=== PATIENT | male | born 1995 | race Caucasian/White ===

== ENCOUNTER 2018-04-22 02:26 | Inpatient (IN) | payer MEDICAID ==
[2018-04-22] MEDS ORDERED: Sodium Chloride 0.9% 1,000 ML IV ONE ×2 (03:06→03:55)
[2018-04-22] MEDS ORDERED: Morphine Sulfate 4 mg/mL 1mL Syr IV STA (03:07)
--- NOTE | 2018-04-22 03:12 | ED Physician Chart ---
ED Chief Complaint/HPI - Patient Information Date Seen:: 04/22/18 Time Seen:: 03:00 Chief Complaint:: abdominal pain History of Present Illness:: Patient developed diffuse abdominal pain about 3 hours ago. He vomited many times and had diarrhea several times. Allergies:: Allergies Allergy/AdvReac Type Severity Reaction Status Date / Time No Known Allergies Allergy Verified 04/22/18 02:47 Vitals:: Vital Signs - 8 hr 04/22/18 02:35 Temp 97.0 F HR 85 RR 19 BP 135/75 O2 Sat % 97 Historian:: Patient ED Review of Systems - Review of Systems General/Constitutional: No fever, No chills, No weight loss, No weakness, No diaphoresis, No edema, No loss of appetite Skin: No skin lesions, No rash, No bruising Head: No headache, No light-headedness Eyes: No loss of vision, No pain, No diplopia ENT: No earache, No nasal drainage, No sore throat, No tinnitus Neck: No neck pain, No swelling, No thyromegaly, No stiffness, No mass noted Cardio Vascular: No chest pain, No palpitations, No PND, No orthopnea, No edema Pulmonary: No SOB, No cough, No sputum, No wheezing GI: Nausea, Vomiting, Diarrhea, Pain, No melena, No hematochezia, No constipation, No hematemesis G/U: No dysuria, No frequency, No hematuria Musculoskeletal: No bone or joint pain, No back pain, No muscle pain Endocrine: No polyuria, No polydipsia Psychiatric: No prior psych history, No depression, No anxiety, No suicidal ideation Hematopoietic: No bruising, No lymphadenopathy Allergic/Immuno: No urticaria, No angioedema Neurological: No syncope, No focal symptoms, No weakness, No paresthesia, No headache, No seizure, No dizziness, No confusion, No vertigo ED Past Medical History - Past Medical History Past Medical History: No significant medical hx Family History: None Social History: Non Smoker, Alcohol, Other (states he drinks alcohol heavily and vomits every morning) Surgical History: None Psychiatricy History: None Family Medical History - Family Member Mother History Unknown: Yes ED Physical Exam - Physical Examination General/Constitutional: Awake, Well-developed, well-nourished, Alert, No distress, GCS 15, Non-toxic appearing, Ambulatory Head: Atraumatic Eyes: Lids, conjuctiva normal, PERRL, EOMI Skin: Nl inspection, No rash, No skin lesions, No ecchymosis, Well hydrated, No lymphadenopathy ENMT: External ears, nose nl, Nasal exam nl, Lips, teeth, gums nl Neck: Nontender, Full ROM w/o pain, No JVD, No nuchal rigidity, No bruit, No mass, No stridor Respiratory: Nl effort/Exclusion, Clear to Auscultation, No Wheeze/Rhonchi/Rales Cardio Vascular: RRR, No murmur, gallop, rubs, NL S1 S2 GI: No organomegaly, No hernia, Nondistended, No mass/bruits Other GI comments:: Diffuse abdominal tenderness : No CVA tenderness Extremities: No tenderness or effusion, Full ROM, normal strength in all extremities, No edema, Normal digits & nails Neuro/Psych: Alert/oriented, DTR's symmetric, Normal sensory exam, Normal motor strength, Judgement/insight normal, Mood normal, Normal gait, No focal deficits Misc: Normal back, No paraspinal tenderness ED Labs/Radiology/EKG Results - Lab Results Results: Abnormal Lab Results 04/22/18 04/22/18 04/22/18 03:25 03:25 03:25 WBC 12.0 H RBC 5.20 Hgb 17.1 Hct 48.6 MCV 93.6 MCH 32.9 H MCHC Differential 35.1 RDW 14.2 Plt Count 321 MPV 8.2 Neutrophils % 78.5 Lymphocytes % 14.3 L Monocytes % 6.4 Eosinophils % 0.3 Basophils % 0.5 Sodium 138 Potassium 3.5 Chloride 102 Carbon Dioxide 22.8 Anion Gap 16.7 H BUN 10 Creatinine 0.8 Est GFR ( Amer) > 60.0 Est GFR (Non-Af Amer) > 60.0 BUN/Creatinine Ratio 12.5 Glucose 143 H Calcium 9.4 Magnesium 1.9 Lipase 555 H Ethyl Alcohol 123 H ED Assessment - Assessment General Assessment: At 0403 patient's pain was not improved. He will receive a second 1 L normal saline intravenously and another 2 mg of morphine intravenously after having received the initial 4 mg ED Septic Shock - . Is Septic Shock (SBP<90, OR Lactate>4 mmol\L) present?: No - <6hrs of presentation: Vital Signs: Vital Signs - 8 hr 04/22/18 02:35 Temp 97.0 F HR 85 RR 19 BP 135/75 O2 Sat % 97 ED Reassessment (Disposition) - Reassessment Reassessment:: At about 0430 Dr. Khan spoke to RN and patient be admitted to [facility] Reassessment Condition:: Unchanged - Diagnosis Diagnosis:: Acute pancreatitis; alcohol intoxication; hyperglycemia; leukocytosis - Patient Disposition Admitted to:: Med/Surg Condition at Disposition:: Improved
[2018-04-22] MEDS ORDERED: Morphine Sulfate 4 mg/mL 1mL Syr ONE (03:18)
[2018-04-22 03:36] LABS: % BASOPHILS 0.5 % (0.0-2.0); % EOSINOPHILS 0.3 % (0.0-5.0); % LYMPHOCYTES 14.3 % (20.0-50.0); % MONOCYTES 6.4 % (2.0-10.0); % NEUTROPHILS 78.5 % (40.0-80.0); BASOPHILE ABSOLUTE 0.1 Th/cumm (0-0.2); HEMATOCRIT 48.6 % (41.0-60); HEMOGLOBIN 17.1 gm/dL (12-16); LYMPHOCYTE ABSOLUTE 1.7 Th/cmm (1.5-3.0); MEAN CELL VOLUME 93.6 fl (80-99); MEAN CORPUSCULAR HEMOGLOBIN 32.9 pg (26.0-30.0); MEAN CORPUSCULAR HGB CONC 35.1 pg (28.0-36.0); MEAN PLATELET VOLUME 8.2 fl; MONOCYTE ABSOLUTE 0.8 Th/cmm (0.3-1.0); NEUTROPHILE ABSOLUTE 9.4 Th/cmm (1.8-8.0); PLATELET COUNT 321 Th/cmm (150-400); RED CELL DISTRIBUTION WIDTH 14.2 % (11.5-20.0)
[2018-04-22 03:48] LABS: ANION GAP 16.7 (7.0-16.0); BUN - UREA NITROGEN 10 mg/dL (7-25); CALCIUM SERUM 9.4 mg/dL (8.6-10.3); CARBON DIOXIDE 22.8 mEq/L (21.0-31.0); CHLORIDE 102 mEq/L (98-107); CREATININE - SERUM 0.8 mg/dL (0.7-1.3); GFR AFRICAN-AMERICAN > 60.0 ml/min (>90); GFR NON AFRICAN-AMERICAN > 60.0 ml/min; GLUCOSE 143 mg/dL (70-105); LIPASE 555 U/L (11-82); MAGNESIUM 1.9 mg/dL (1.9-2.7); POTASSIUM SERUM 3.5 mEq/L (3.5-5.1); SODIUM SERUM 138 mEq/L (136-145)
[2018-04-22] MEDS ORDERED: Morphine Sulfate 2 mg/mL 1mL Syr IVP STA (03:56)
[2018-04-22] MEDS ORDERED: Morphine Sulfate 2 mg/mL 1mL Syr ONE (03:57)
[2018-04-22] MEDS ORDERED: HYDROmorphone 1 mg/mL 1mL Syr IVP STA (04:35)
[2018-04-22] MEDS ORDERED: HYDROmorphone 1 mg/mL 1mL Syr ONE (04:38)
[2018-04-22 05:34] VITALS: BP 145/91
[2018-04-22 07:31] LABS: AMYLASE SERUM 122 U/L (29-103); LIPASE 580 U/L (11-82)
[2018-04-22] MEDS: HYDROmorphone 2 mg/mL 1mL Vial IVP PRN ×5 (08:17→23:10)
[2018-04-22] MEDS: D5-0.45NS w/20 mEq KCL 1,000 ML IV SCH (09:32)
--- NOTE | 2018-04-22 14:08 | Diagnostic Imaging Report ---
CT abdomen and pelvis without intravenous contrast Indication: Acute pancreatitis Comparison: None, Technique: Axial images were obtained from the lung bases to the bilateral proximal femurs without IV contrast. Coronal reconstructions were made. total DLP: 559, CTDI9.6 FINDINGS: Hypoventilatory atelectatic changes of the lung bases are noted. Assessment of the solid organs is limited due to lack of IV contrast. There is diffuse fatty infiltration of the liver. Hepatomegaly is also noted. No focal lesions. No focal splenic lesions. Mild free fluid is noted in including the perisplenic lesions and surrounding the pancreas and tracking down the mesentery and omentum. This may be due to underlying pancreatitis. Limited assessment of pancreas demonstrates no discrete focal lesions. No focal adrenal lesions. Inflammatory changes are seen surrounding the left adrenal gland. No hydronephrosis or nephrolithiasis. Mild free fluid is also noted tracking into the pelvis. No evidence of outflow obstruction. There is mild fatty infiltration of the colonic mucosa. No appendicitis. No free air. The osseous structures demonstrate no acute abnormalities. IMPRESSION: Inflammatory changes surrounding the pancreas extending to the regional fat planes including the mesentery and omentum with mild free fluid throughout the abdomen extending to the pelvis. Findings may be due to underlying pancreatitis. Consider short-term follow-up with CT with IV contrast if indicated. Hepatomegaly with diffuse fatty infiltration. Fatty infiltration of the colonic mucosa.
[2018-04-22] MEDS: Multivitamin Inj 10 ML, Thiamine HCL 100 MG, Magnesium Sulfate 2 GM, Folic Acid 1 MG in... IV SCH (14:48)
--- NOTE | 2018-04-22 15:54 | History & Physical ---
ADMIT DATE: 04/22/2018 CHIEF COMPLAINT: Acute abdominal pain. HISTORY OF PRESENT ILLNESS: The patient is a 23-year-old male with long history of alcohol dependency, presented to the Emergency Room with acute abdominal pain. Initial workup significant for acute pancreatitis, admitted to the hospital for evaluation and treatment. The patient denies any fever or chills. Pain at the mid abdomen associated with nausea and vomiting. No dysuria or hematuria. PAST MEDICAL HISTORY: Significant for alcohol dependence. PAST SURGICAL HISTORY: No recent surgery. ALLERGIES: None. MEDICATIONS: None. SOCIAL HISTORY: Chronic alcohol dependency. No drug. FAMILY HISTORY: Noncontributory. REVIEW OF SYSTEMS: RENAL SYSTEM: No history of chronic renal disorder. CARDIOVASCULAR SYSTEM: No coronary artery disease. ENDOCRINE SYSTEM: No diabetes or thyroid problem. GASTROINTESTINAL SYSTEM: History of gastrointestinal bleed. NEUROLOGICAL SYSTEM: No seizure disorder. MUSCULOSKELETAL SYSTEM: No muscular dystrophy. HEMATOLOGIC SYSTEM: No bleeding tendencies. RESPIRATORY SYSTEM: No asthma. GENITOURINARY: No dysuria or hematuria. PHYSICAL EXAMINATION: GENERAL: He is awake, alert, oriented. VITAL SIGNS: Temperature 98.4, heart rate is 114, and blood pressure 152/95. HEENT: Normocephalic. Pupils reactive to light and accommodation. Sclerae clear. NECK: Supple. Negative for lymphadenopathy, JVD, or bruit. CHEST: Entry of air bilaterally normal. No rhonchi or wheezing. HEART: S1, S2 normal. ABDOMEN: Soft. Tenderness at the mid upper abdomen. Rebound negative. Bowel sounds positive. EXTREMITIES: No edema. NEUROLOGIC: He is awake, alert, oriented. No focal motor or sensory deficit. Cranial nerves II through XII are intact. LABORATORY DATA: Sodium 138, potassium 3.5, BUN 10, creatinine 0.8, lipase 555, amylase 122. White blood cell 12, hemoglobin 17.1, hematocrit 48.6, and platelets 321. ASSESSMENT: 1. Acute pancreatitis. 2. Alcohol dependency. PLAN: The patient admitted to the hospital under Dr. Khan's service. Start him on IV fluid, IV Protonix. GI consultation obtained. A banana bag started to replace the IV fluid. CBC, CMP, lipase, and amylase, magnesium level in a.m. The patient is a full code. JOB# [id number]
[2018-04-23] MEDS: D5-0.45NS w/20 mEq KCL 1,000 ML IV SCH (02:11)
[2018-04-23] MEDS: HYDROmorphone 2 mg/mL 1mL Vial IVP PRN ×5 (03:49→21:31)
[2018-04-23 06:00] LABS: HEMATOCRIT 49.9 % (41.0-60); HEMOGLOBIN 17.1 gm/dL (12-16); MEAN CELL VOLUME 95.9 fl (80-99); MEAN CORPUSCULAR HEMOGLOBIN 32.9 pg (26.0-30.0); MEAN CORPUSCULAR HGB CONC 34.3 pg (28.0-36.0); MEAN PLATELET VOLUME 8.7 fl; PLATELET COUNT 220 Th/cmm (150-400); RED BLOOD COUNT 5.21 Mil/cmm (4.30-5.70); RED CELL DISTRIBUTION WIDTH 14.5 % (11.5-20.0)
[2018-04-23 06:05] LABS: WHITE BLOOD COUNT 19.9 Th/cmm (4.8-10.8)
[2018-04-23 06:21] LABS: ALB/GLOB RATIO 1.1 (1.0-1.8); ALBUMIN 3.3 gm/dL (4.2-5.5); ALKALINE PHOSPHATASE 117 U/L (34-104); AMYLASE SERUM 159 U/L (29-103); ANION GAP 12.6 (7.0-16.0); BILIRUBIN,TOTAL 2.7 mg/dL (0.3-1.0); BUN - UREA NITROGEN 9 mg/dL (7-25); CALCIUM SERUM 8.7 mg/dL (8.6-10.3); CARBON DIOXIDE 22.6 mEq/L (21.0-31.0); CHLORIDE 100 mEq/L (98-107); CREATININE - SERUM 0.8 mg/dL (0.7-1.3); GFR AFRICAN-AMERICAN > 60.0 ml/min (>90); GFR NON AFRICAN-AMERICAN > 60.0 ml/min; GLUCOSE 148 mg/dL (70-105); MAGNESIUM 1.9 mg/dL (1.9-2.7); POTASSIUM SERUM 4.2 mEq/L (3.5-5.1); SGOT 204 U/L (13-39); SGPT/ALT 89 U/L (7-52); SODIUM SERUM 131 mEq/L (136-145); TOTAL PROTEIN,SERUM 6.2 gm/dL (6.0-8.3)
[2018-04-23 06:29] LABS: BAND NEUTROPHILE 0 % (0-10); BASOPHIL 0 % (0-3); EOSINOPHIL 0 % (0-5); LYMPHOCYTE 5 % (20-50); MONOCYTE 5 % (2-10); NEUTROPHILS 95 % (40-80)
[2018-04-23 06:30] LABS: % EOSINOPHILS 0.2 % (0.0-5.0); % LYMPHOCYTES 6.3 % (20.0-50.0); % MONOCYTES 5.2 % (2.0-10.0); % NEUTROPHILS 88.3 % (40.0-80.0)
[2018-04-23 06:36] LABS: LIPASE 900 U/L (11-82)
--- NOTE | 2018-04-23 07:55 | GI Progress Note ---
Subjective - Review of Systems Service Date: 04/23/18 Subjective: EVENTS NOTED. STILL WITH EPIG PAIN. Objective - Results Result Diagrams: 04/23/18 05:48 04/23/18 05:48 Recent Labs: Laboratory Last Values WBC 19.9 Th/cmm (4.8-10.8) H 04/23/18 05:48 RBC 5.21 Mil/cmm (4.30-5.70) 04/23/18 05:48 Hgb 17.1 gm/dL (12-16) 04/23/18 05:48 Hct 49.9 % (41.0-60) 04/23/18 05:48 MCV 95.9 fl (80-99) 04/23/18 05:48 MCH 32.9 pg (26.0-30.0) H 04/23/18 05:48 MCHC Differential 34.3 pg (28.0-36.0) 04/23/18 05:48 RDW 14.5 % (11.5-20.0) 04/23/18 05:48 Plt Count 220 Th/cmm (150-400) 04/23/18 05:48 MPV 8.7 fl 04/23/18 05:48 Add Manual Diff YES 04/23/18 05:48 Neutrophils % 88.3 % (40.0-80.0) H 04/23/18 05:48 Band Neutrophils % 0 % (0-10) 04/23/18 05:48 Lymphocytes % 6.3 % (20.0-50.0) L 04/23/18 05:48 Monocytes % 5.2 % (2.0-10.0) 04/23/18 05:48 Eosinophils % 0.2 % (0.0-5.0) 04/23/18 05:48 Basophils % 0.5 % (0.0-2.0) 04/22/18 03:25 Neutrophils (Manual) 95 % (40-80) H 04/23/18 05:48 Lymphocytes 5 % (20-50) L 04/23/18 05:48 Monocytes 5 % (2-10) 04/23/18 05:48 Eosinophils 0 % (0-5) 04/23/18 05:48 Basophils 0 % (0-3) 04/23/18 05:48 Sodium 131 mEq/L (136-145) L 04/23/18 05:48 Potassium 4.2 mEq/L (3.5-5.1) 04/23/18 05:48 Chloride 100 mEq/L (98-107) 04/23/18 05:48 Carbon Dioxide 22.6 mEq/L (21.0-31.0) 04/23/18 05:48 Anion Gap 12.6 (7.0-16.0) 04/23/18 05:48 BUN 9 mg/dL (7-25) 04/23/18 05:48 Creatinine 0.8 mg/dL (0.7-1.3) 04/23/18 05:48 Est GFR ( Amer) > 60.0 ml/min (>90) 04/23/18 05:48 Est GFR (Non-Af Amer) > 60.0 ml/min 04/23/18 05:48 BUN/Creatinine Ratio 11.3 04/23/18 05:48 Glucose 148 mg/dL (70-105) H 04/23/18 05:48 Calcium 8.7 mg/dL (8.6-10.3) 04/23/18 05:48 Magnesium 1.9 mg/dL (1.9-2.7) 04/23/18 05:48 Total Bilirubin 2.7 mg/dL (0.3-1.0) H 04/23/18 05:48 AST 204 U/L (13-39) H 04/23/18 05:48 ALT 89 U/L (7-52) H 04/23/18 05:48 Alkaline Phosphatase 117 U/L (34-104) H 04/23/18 05:48 Total Protein 6.2 gm/dL (6.0-8.3) 04/23/18 05:48 Albumin 3.3 gm/dL (4.2-5.5) L 04/23/18 05:48 Globulin 2.9 gm/dL 04/23/18 05:48 Albumin/Globulin Ratio 1.1 (1.0-1.8) 04/23/18 05:48 Amylase 159 U/L (29-103) H 04/23/18 05:48 Lipase 900 U/L (11-82) H 04/23/18 05:48 Ethyl Alcohol 123 mg/dL (0-10) H 04/22/18 03:25 - Physical Exam Vitals and I&O: Vital Signs Temp 99.5 F 04/23/18 04:00 Pulse 131 04/23/18 04:00 Resp 20 04/23/18 04:00 BP 128/75 04/23/18 04:00 Pulse Ox 95 04/23/18 04:00 Intake & Output 04/22/18 04/23/18 04/23/18 18:59 06:59 18:59 Intake Total 750 500 Output Total 500 Balance 250 500 Weight (lbs) 81.647 kg 81.647 kg Intake: Intake, IV Amount 500 500 D5-0.45NS w/20 mEq KCL 1, 500 500 000 ml @ 125 mls/hr IV . Q8H [facility] Rx#:[id number] Oral 250 Output: Emesis 500 Other: # Voids 3 # Bowel Movements 0 Weight Source Bedscale Bedscale Active Medications: Current Medications Chlordiazepoxide (Librium) 25 mg PO BID [facility]; Protocol Stop: 06/21/18 16:59 Last Admin: 04/22/18 16:23 Dose: 25 mg Hydromorphone HCl (Dilaudid) 2 mg IVP Q4H PRN PRN Reason: Pain (Severe) Stop: 06/21/18 05:31 Last Admin: 04/23/18 03:49 Dose: 2 mg Potassium Chloride/Dextrose/Sod Cl (D5-0.45ns W/20 Meq Kcl) 1,000 mls @ 125 mls /hr IV .Q8H [facility] Stop: 06/21/18 07:59 Last Admin: 04/23/18 02:11 Dose: 125 mls/hr Multivitamins/Minerals 10 ml/Thiamine HCl 100 mg/ Magnesium Sulfate 2 gm/ Folic Acid 1 mg / Sodium Chloride 1,015.2 mls @ 125 mls/hr IV Q24H [facility] Stop: 06/21/18 14:59 Last Admin: 04/22/18 14:48 Dose: 125 mls/hr Lorazepam (Ativan) 2 mg IVP Q4HR PRN; Protocol PRN Reason: Seizures Stop: 06/21/18 13:23 Last Admin: 04/23/18 00:51 Dose: 2 mg Ondansetron HCl (Zofran) 4 mg IV Q4H PRN PRN Reason: Nausea / Vomiting Stop: 06/21/18 05:31 Last Admin: 04/22/18 22:40 Dose: 4 mg Pantoprazole Sodium (Protonix) 40 mg IVP DAILY [facility] Stop: 06/22/18 08:59 General: Alert HEENT: Atraumatic Neck: Supple Cardiovascular: Regular rate Lungs: Clear to auscultation Abdomen: Bowel sounds, Soft, Tender (MILD EPIG) Assessment/Plan - Assessment Assessment: IMPRESSION: 1. ACUTE ALCOHOLIC PANCREATITIS. 2. ALCOHOL DEPENDENCE. RECS: 1. IVF/PAIN CONTROL. 2. PROTONIX. 3. ZOFRAN. 4. CLEAR LIQUIDS FOR NOW. 5. CHECK TG LEVEL. 6. LIBRIUM. 7. THIAMINE. 8. ALCOHOL CESSATION STRESSED.
[2018-04-23] MEDS: Sodium Chloride 0.9% 1,000 ML IV SCH (08:53)
--- NOTE | 2018-04-23 09:58 | Consultation ---
DATE OF CONSULTATION: 04/22/2018 GASTROENTEROLOGY CONSULTATION REQUESTING PHYSICIAN: Dr. Karen Khan. REASON FOR CONSULTATION: Acute pancreatitis. HISTORY OF PRESENT ILLNESS: A 23-year-old male with alcohol dependence, admitted for the first time with epigastric abdominal pains, nausea, vomiting and acute pancreatitis. He has been drinking since age of 12. He drinks mostly beer, last drink was yesterday. He started having abdominal pain with radiation to the back along with nausea and vomiting that started yesterday. He denies GI bleeding or melena. PAST MEDICAL HISTORY: As above. MEDICATIONS: Here are Librium, Dilaudid, Ativan, banana bag, Zofran and IV fluids with potassium. ALLERGIES: No known drug allergies. SOCIAL HISTORY: No tobacco, positive alcohol. No drugs. FAMILY HISTORY: Noncontributory. REVIEW OF SYSTEMS: Negative. PHYSICAL EXAMINATION: VITAL SIGNS: Temperature of 98.1, blood pressure 141/76, pulse of 140, respirations 20, O2 sat 97% on room air. GENERAL: The patient is well-developed, well-nourished young male who is in no acute distress. HEENT: Sclerae nonicteric. Oropharynx is clear. CARDIOVASCULAR: Regular rate and rhythm. LUNGS: With occasional rhonchi at the base. ABDOMEN: Soft, nontender. Mild to moderate epigastric tenderness to palpation, mild distention. Hypoactive bowel sounds. EXTREMITIES: No edema. RECTAL: Deferred. LABORATORY DATA AND IMAGING: WBC 12, hemoglobin 17.1, platelet count 321, creatinine 0.8, lipase 580, amylase 122. Alcohol level 123. CT of the abdomen and pelvis done without contrast shows inflammatory changes surrounding the pancreas extending to the region of the fat planes and mesentery and omentum consistent with acute pancreatitis. No obvious mass lesion identified. IMPRESSION: 1. Acute pancreatitis, likely alcohol related, new onset. 2. Leukocytosis. 3. Nausea and vomiting, likely secondary to above. RECOMMENDATIONS: 1. Protonix. 2. Antiemetics. 3. IV fluids with n.p.o. status and pain control measures. 4. Monitor lipase. 5. Alcohol dependence. Straight alcohol rehabilitation strongly advised. 6. Banana bag. 7. Antianxiety medications to control pending alcohol withdrawal state. Thank you, Dr. Karen Khan for involving us in the care of your patient. If you have any further questions, please call us. JOB# [id number]
[2018-04-23] MEDS: Multivitamin Inj 10 ML, Thiamine HCL 100 MG, Magnesium Sulfate 2 GM, Folic Acid 1 MG in... IV SCH (15:33)
--- NOTE | 2018-04-23 18:46 | General Progress Note ---
Subjective - Review of Systems Service Date: 04/23/18 Subjective: awake and alert epigastric pain urine noted to be red tinged Objective - Results Result Diagrams: 04/23/18 05:48 04/23/18 05:48 Recent Labs: Laboratory Last Values WBC 19.9 Th/cmm (4.8-10.8) H 04/23/18 05:48 RBC 5.21 Mil/cmm (4.30-5.70) 04/23/18 05:48 Hgb 17.1 gm/dL (12-16) 04/23/18 05:48 Hct 49.9 % (41.0-60) 04/23/18 05:48 MCV 95.9 fl (80-99) 04/23/18 05:48 MCH 32.9 pg (26.0-30.0) H 04/23/18 05:48 MCHC Differential 34.3 pg (28.0-36.0) 04/23/18 05:48 RDW 14.5 % (11.5-20.0) 04/23/18 05:48 Plt Count 220 Th/cmm (150-400) 04/23/18 05:48 MPV 8.7 fl 04/23/18 05:48 Add Manual Diff YES 04/23/18 05:48 Neutrophils % 88.3 % (40.0-80.0) H 04/23/18 05:48 Band Neutrophils % 0 % (0-10) 04/23/18 05:48 Lymphocytes % 6.3 % (20.0-50.0) L 04/23/18 05:48 Monocytes % 5.2 % (2.0-10.0) 04/23/18 05:48 Eosinophils % 0.2 % (0.0-5.0) 04/23/18 05:48 Basophils % 0.5 % (0.0-2.0) 04/22/18 03:25 Neutrophils (Manual) 95 % (40-80) H 04/23/18 05:48 Lymphocytes 5 % (20-50) L 04/23/18 05:48 Monocytes 5 % (2-10) 04/23/18 05:48 Eosinophils 0 % (0-5) 04/23/18 05:48 Basophils 0 % (0-3) 04/23/18 05:48 Sodium 131 mEq/L (136-145) L 04/23/18 05:48 Potassium 4.2 mEq/L (3.5-5.1) 04/23/18 05:48 Chloride 100 mEq/L (98-107) 04/23/18 05:48 Carbon Dioxide 22.6 mEq/L (21.0-31.0) 04/23/18 05:48 Anion Gap 12.6 (7.0-16.0) 04/23/18 05:48 BUN 9 mg/dL (7-25) 04/23/18 05:48 Creatinine 0.8 mg/dL (0.7-1.3) 04/23/18 05:48 Est GFR ( Amer) > 60.0 ml/min (>90) 04/23/18 05:48 Est GFR (Non-Af Amer) > 60.0 ml/min 04/23/18 05:48 BUN/Creatinine Ratio 11.3 04/23/18 05:48 Glucose 148 mg/dL (70-105) H 04/23/18 05:48 Calcium 8.7 mg/dL (8.6-10.3) 04/23/18 05:48 Magnesium 1.9 mg/dL (1.9-2.7) 04/23/18 05:48 Total Bilirubin 2.7 mg/dL (0.3-1.0) H 04/23/18 05:48 AST 204 U/L (13-39) H 04/23/18 05:48 ALT 89 U/L (7-52) H 04/23/18 05:48 Alkaline Phosphatase 117 U/L (34-104) H 04/23/18 05:48 Total Protein 6.2 gm/dL (6.0-8.3) 04/23/18 05:48 Albumin 3.3 gm/dL (4.2-5.5) L 04/23/18 05:48 Globulin 2.9 gm/dL 04/23/18 05:48 Albumin/Globulin Ratio 1.1 (1.0-1.8) 04/23/18 05:48 Amylase 159 U/L (29-103) H 04/23/18 05:48 Lipase 900 U/L (11-82) H 04/23/18 05:48 Ethyl Alcohol 123 mg/dL (0-10) H 04/22/18 03:25 - Physical Exam Vitals and I&O: Vital Signs Temp 100.2 F 04/23/18 15:41 Pulse 131 04/23/18 17:09 Resp 20 04/23/18 15:41 BP 141/75 04/23/18 15:41 Pulse Ox 95 04/23/18 15:41 Intake & Output 04/22/18 04/23/18 04/23/18 18:59 06:59 18:59 Intake Total 750 1515.2 50 Output Total 500 Balance 250 1515.2 50 Weight (lbs) 81.647 kg 81.647 kg Intake: Intake, IV Amount 500 1515.2 50 D5-0.45NS w/20 mEq KCL 1, 500 500 000 ml @ 125 mls/hr IV . Q8H [facility] Rx#:[id number] Multivitamin Inj 10 ml 1015.2 Thiamine HCL 100 mg Magnesium Sulfate 2 gm Folic Acid 1 mg In Sodium Chloride 0.9% 1,000 ml @ 125 mls/hr IV Q24H [facility] Rx#:[id number] Piperacillin Sodium/ 50 Tazobact 3.375 gm In Sodium Chloride 0.9% 50 ml @ 100 mls/hr IV Q6HR [facility] Rx#:[id number] Oral 250 Output: Emesis 500 Other: # Voids 3 # Bowel Movements 0 Weight Source Bedscale Bedscale Active Medications: Current Medications Chlordiazepoxide (Librium) 25 mg PO BID [facility]; Protocol Stop: 06/21/18 16:59 Last Admin: 04/23/18 17:09 Dose: 25 mg Folic Acid (Folate) 1 mg PO DAILY [facility] Stop: 06/22/18 13:29 Hydromorphone HCl (Dilaudid) 2 mg IVP Q4H PRN PRN Reason: Pain (Severe) Stop: 06/21/18 05:31 Last Admin: 04/23/18 17:09 Dose: 2 mg Multivitamins/Minerals 10 ml/Thiamine HCl 100 mg/ Magnesium Sulfate 2 gm/ Folic Acid 1 mg / Sodium Chloride 1,015.2 mls @ 125 mls/hr IV Q24H [facility] Stop: 06/21/18 14:59 Last Admin: 04/23/18 15:33 Dose: 125 mls/hr Piperacillin Sod/Tazobactam (Sod 3.375 gm/ Sodium Chloride) 50 mls @ 100 mls/ hr IV Q6HR [facility] Stop: 06/22/18 08:29 Last Admin: 04/23/18 12:45 Dose: 100 mls/hr Sodium Chloride (Nacl 0.9%) 1,000 mls @ 150 mls/hr IV .Q6H40M [facility] Stop: 06/22/18 07:57 Last Admin: 04/23/18 08:53 Dose: 150 mls/hr Lorazepam (Ativan) 1 mg IVP Q4HR PRN; Protocol PRN Reason: Anxiety Stop: 06/22/18 13:18 Multivitamins/Vitamin C (Theragran) 1 tab PO DAILY [facility] Stop: 06/22/18 13:29 Ondansetron HCl (Zofran) 4 mg IV Q4H PRN PRN Reason: Nausea / Vomiting Stop: 06/21/18 05:31 Last Admin: 04/22/18 22:40 Dose: 4 mg Pantoprazole Sodium (Protonix) 40 mg IVP BID [facility] Stop: 06/22/18 08:59 Last Admin: 04/23/18 17:09 Dose: 40 mg Thiamine HCl (Vitamin B1) 100 mg PO DAILY [facility] Stop: 06/22/18 13:14 General: Alert HEENT: Atraumatic Neck: Supple Cardiovascular: Regular rate Lungs: Clear to auscultation Abdomen: Bowel sounds, Soft, Tender (MILD EPIG) Assessment/Plan - Assessment Assessment: acute pancreatitis etoh abuse - Plan Plan: continue IV hydration UA monitor WBC and Lipase
[2018-04-24] MEDS: HYDROmorphone 2 mg/mL 1mL Vial IVP PRN ×7 (01:11→22:08)
[2018-04-24] MEDS: Sodium Chloride 0.9% 1,000 ML IV SCH (05:18)
[2018-04-24 06:08] LABS: % EOSINOPHILS 1.2 % (0.0-5.0); % LYMPHOCYTES 9.4 % (20.0-50.0); % MONOCYTES 6.5 % (2.0-10.0); % NEUTROPHILS 82.9 % (40.0-80.0); EOSINOPHILE ABSOLUTE 0.2 Th/cmm (0.1-0.4); HEMATOCRIT 39.5 % (41.0-60); HEMOGLOBIN 13.5 gm/dL (12-16); LYMPHOCYTE ABSOLUTE 1.3 Th/cmm (1.5-3.0); MEAN CELL VOLUME 96.5 fl (80-99); MEAN CORPUSCULAR HGB CONC 34.2 pg (28.0-36.0); MEAN PLATELET VOLUME 9.2 fl; MONOCYTE ABSOLUTE 0.9 Th/cmm (0.3-1.0); NEUTROPHILE ABSOLUTE 11.6 Th/cmm (1.8-8.0); PLATELET COUNT 174 Th/cmm (150-400); RED BLOOD COUNT 4.09 Mil/cmm (4.30-5.70); RED CELL DISTRIBUTION WIDTH 13.9 % (11.5-20.0)
[2018-04-24 06:17] LABS: INR 0.99 (0.5-1.4); PROTHROMBIN TIME (TEST) 10.3 SECONDS (9.5-11.5)
[2018-04-24 06:20] LABS: URINE SOURCE MIDSTREAM
[2018-04-24 06:25] LABS: URINE BILIRUBIN NEGATIVE (NEGATIVE); URINE BLOOD TRACE (NEGATIVE); URINE GLUCOSE (UA) NEGATIVE (NEGATIVE); URINE KETONE TRACE mg/dL (NEGATIVE); URINE LEUKOCYTE ESTERASE NEGATIVE (NEGATIVE); URINE MICROSCOPIC INDICATED? YES; URINE NITRATE NEGATIVE (NEGATIVE); URINE PROTEIN 30 mg/dL (NEGATIVE); URINE UROBILINOGEN 0.2 E.U./dL (0.2 - 1.0)
[2018-04-24 06:26] LABS: ALKALINE PHOSPHATASE 76 U/L (34-104); ANION GAP 10.7 (7.0-16.0); BUN - UREA NITROGEN 9 mg/dL (7-25); CALCIUM SERUM 8.5 mg/dL (8.6-10.3); CARBON DIOXIDE 23.9 mEq/L (21.0-31.0); CHLORIDE 100 mEq/L (98-107); CREATININE - SERUM 0.9 mg/dL (0.7-1.3); GFR AFRICAN-AMERICAN > 60.0 ml/min (>90); GFR NON AFRICAN-AMERICAN > 60.0 ml/min; GLUCOSE 108 mg/dL (70-105); LIPASE 589 U/L (11-82); POTASSIUM SERUM 3.6 mEq/L (3.5-5.1); SGOT 82 U/L (13-39); SGPT/ALT 51 U/L (7-52); SODIUM SERUM 131 mEq/L (136-145); TOTAL PROTEIN,SERUM 5.9 gm/dL (6.0-8.3); TRIGLYCERIDES 104 mg/dL (<150)
[2018-04-24 06:38] LABS: URINE CLARITY TURBID (CLEAR); URINE COLOR YELLOW
[2018-04-24 06:48] LABS: URINE BACTERIA 2+ /hpf (NONE SEEN); URINE EPITHELIAL CELLS OCCASIONAL /lpf (FEW); URINE RBC 0-2 /hpf (0-5); URINE WBC 0-2 /hpf (0-5)
[2018-04-24 06:49] LABS: URINE AMORPHOUS SEDIMENT FEW URATES (NONE SEEN)
--- NOTE | 2018-04-24 07:54 | GI Progress Note ---
Subjective - Review of Systems Service Date: 04/24/18 Subjective: EVENTS NOTED. STILL WITH EPIG PAIN. FEELS BETTER. Objective - Results Result Diagrams: 04/24/18 05:55 04/24/18 05:55 Recent Labs: Laboratory Last Values WBC 14.0 Th/cmm (4.8-10.8) H 04/24/18 05:55 RBC 4.09 Mil/cmm (4.30-5.70) L 04/24/18 05:55 Hgb 13.5 gm/dL (12-16) 04/24/18 05:55 Hct 39.5 % (41.0-60) L 04/24/18 05:55 MCV 96.5 fl (80-99) 04/24/18 05:55 MCH 33.0 pg (26.0-30.0) H 04/24/18 05:55 MCHC Differential 34.2 pg (28.0-36.0) 04/24/18 05:55 RDW 13.9 % (11.5-20.0) 04/24/18 05:55 Plt Count 174 Th/cmm (150-400) 04/24/18 05:55 MPV 9.2 fl 04/24/18 05:55 Add Manual Diff YES 04/23/18 05:48 Neutrophils % 82.9 % (40.0-80.0) H 04/24/18 05:55 Band Neutrophils % 0 % (0-10) 04/23/18 05:48 Lymphocytes % 9.4 % (20.0-50.0) L 04/24/18 05:55 Monocytes % 6.5 % (2.0-10.0) 04/24/18 05:55 Eosinophils % 1.2 % (0.0-5.0) 04/24/18 05:55 Basophils % 0.0 % (0.0-2.0) 04/24/18 05:55 Neutrophils (Manual) 95 % (40-80) H 04/23/18 05:48 Lymphocytes 5 % (20-50) L 04/23/18 05:48 Monocytes 5 % (2-10) 04/23/18 05:48 Eosinophils 0 % (0-5) 04/23/18 05:48 Basophils 0 % (0-3) 04/23/18 05:48 PT 10.3 SECONDS (9.5-11.5) 04/24/18 05:55 INR 0.99 (0.5-1.4) 04/24/18 05:55 PTT (Actin FS) 31.6 SECONDS (26.0-38.0) 04/24/18 05:55 Sodium 131 mEq/L (136-145) L 04/24/18 05:55 Potassium 3.6 mEq/L (3.5-5.1) 04/24/18 05:55 Chloride 100 mEq/L (98-107) 04/24/18 05:55 Carbon Dioxide 23.9 mEq/L (21.0-31.0) 04/24/18 05:55 Anion Gap 10.7 (7.0-16.0) 04/24/18 05:55 BUN 9 mg/dL (7-25) 04/24/18 05:55 Creatinine 0.9 mg/dL (0.7-1.3) 04/24/18 05:55 Est GFR ( Amer) > 60.0 ml/min (>90) 04/24/18 05:55 Est GFR (Non-Af Amer) > 60.0 ml/min 04/24/18 05:55 BUN/Creatinine Ratio 10.0 04/24/18 05:55 Glucose 108 mg/dL (70-105) H 04/24/18 05:55 Calcium 8.5 mg/dL (8.6-10.3) L 04/24/18 05:55 Magnesium 1.9 mg/dL (1.9-2.7) 04/23/18 05:48 Total Bilirubin 2.0 mg/dL (0.3-1.0) H 04/24/18 05:55 AST 82 U/L (13-39) H 04/24/18 05:55 ALT 51 U/L (7-52) 04/24/18 05:55 Alkaline Phosphatase 76 U/L (34-104) 04/24/18 05:55 Total Protein 5.9 gm/dL (6.0-8.3) L 04/24/18 05:55 Albumin 3.0 gm/dL (4.2-5.5) L 04/24/18 05:55 Globulin 2.9 gm/dL 04/24/18 05:55 Albumin/Globulin Ratio 1.0 (1.0-1.8) 04/24/18 05:55 Triglycerides 104 mg/dL (<150) 04/24/18 05:55 Amylase 159 U/L (29-103) H 04/23/18 05:48 Lipase 589 U/L (11-82) H 04/24/18 05:55 Urine Source MIDSTREAM 04/24/18 05:15 Urine Color YELLOW 04/24/18 05:15 Urine Clarity TURBID (CLEAR) 04/24/18 05:15 Urine pH 6.0 (4.6 - 8.0) 04/24/18 05:15 Ur Specific [place] >= 1.030 (1.005-1.030) 04/24/18 05:15 Urine Protein 30 mg/dL (NEGATIVE) H 04/24/18 05:15 Urine Glucose (UA) NEGATIVE mg/dL (NEGATIVE) 04/24/18 05:15 Urine Ketones TRACE mg/dL (NEGATIVE) 04/24/18 05:15 Urine Blood TRACE (NEGATIVE) 04/24/18 05:15 Urine Nitrate NEGATIVE (NEGATIVE) 04/24/18 05:15 Urine Bilirubin NEGATIVE (NEGATIVE) 04/24/18 05:15 Urine Urobilinogen 0.2 E.U./dL (0.2 - 1.0) 04/24/18 05:15 Ur Leukocyte Esterase NEGATIVE (NEGATIVE) 04/24/18 05:15 Urine RBC 0-2 /hpf (0-5) H 04/24/18 05:15 Urine WBC 0-2 /hpf (0-5) 04/24/18 05:15 Ur Epithelial Cells OCCASIONAL /lpf (FEW) 04/24/18 05:15 Amorphous Sediment FEW URATES (NONE SEEN) 04/24/18 05:15 Urine Bacteria 2+ /hpf (NONE SEEN) H 04/24/18 05:15 Ethyl Alcohol 123 mg/dL (0-10) H 04/22/18 03:25 - Physical Exam Vitals and I&O: Vital Signs Temp 98.0 F 04/24/18 04:00 Pulse 108 04/24/18 04:00 Resp 19 04/24/18 04:00 BP 113/73 04/24/18 04:00 Pulse Ox 93 04/24/18 04:00 Intake & Output 0104/24/18 04/24/18 18:59 06:59 18:59 Intake Total 1100 100 Balance 1100 100 Weight (lbs) 81.647 kg Intake: Intake, IV Amount 1100 100 Piperacillin Sodium/ 100 100 Tazobact 3.375 gm In Sodium Chloride 0.9% 50 ml @ 100 mls/hr IV Q6HR [facility] Rx#:[id number] Sodium Chloride 0.9% 1, 1000 000 ml @ 150 mls/hr IV . Q6H40M [facility] Rx#:[id number] Other: Weight Source Estimated Active Medications: Current Medications Chlordiazepoxide (Librium) 25 mg PO BID [facility]; Protocol Stop: 06/21/18 16:59 Last Admin: 04/23/18 17:09 Dose: 25 mg Folic Acid (Folate) 1 mg PO DAILY [facility] Stop: 06/22/18 13:29 Hydromorphone HCl (Dilaudid) 2 mg IVP Q4H PRN PRN Reason: Pain (Severe) Stop: 06/21/18 05:31 Last Admin: 04/24/18 05:20 Dose: 2 mg Multivitamins/Minerals 10 ml/Thiamine HCl 100 mg/ Magnesium Sulfate 2 gm/ Folic Acid 1 mg / Sodium Chloride 1,015.2 mls @ 125 mls/hr IV Q24H [facility] Stop: 06/21/18 14:59 Last Admin: 04/23/18 15:33 Dose: 125 mls/hr Piperacillin Sod/Tazobactam (Sod 3.375 gm/ Sodium Chloride) 50 mls @ 100 mls/ hr IV Q6HR [facility] Stop: 06/22/18 08:29 Last Admin: 04/24/18 06:53 Dose: 100 mls/hr Sodium Chloride (Nacl 0.9%) 1,000 mls @ 150 mls/hr IV .Q6H40M [facility] Stop: 06/22/18 07:57 Last Admin: 04/24/18 05:18 Dose: 150 mls/hr Lorazepam (Ativan) 1 mg IVP Q4HR PRN; Protocol PRN Reason: Anxiety Stop: 06/22/18 13:18 Multivitamins/Vitamin C (Theragran) 1 tab PO DAILY [facility] Stop: 06/22/18 13:29 Ondansetron HCl (Zofran) 4 mg IV Q4H PRN PRN Reason: Nausea / Vomiting Stop: 06/21/18 05:31 Last Admin: 04/22/18 22:40 Dose: 4 mg Pantoprazole Sodium (Protonix) 40 mg IVP BID [facility] Stop: 06/22/18 08:59 Last Admin: 04/23/18 17:09 Dose: 40 mg Thiamine HCl (Vitamin B1) 100 mg PO DAILY [facility] Stop: 06/22/18 13:14 General: Alert HEENT: Atraumatic Neck: Supple Cardiovascular: Regular rate Lungs: Clear to auscultation Abdomen: Bowel sounds, Soft, Tender (MILD EPIG), Distended (MILD) Assessment/Plan - Assessment Assessment: IMPRESSION: 1. ACUTE ALCOHOLIC PANCREATITIS. 2. ALCOHOL DEPENDENCE. 3. LEUKOCYTOSIS, BETTER. RECS: 1. IVF/PAIN CONTROL. 2. PROTONIX. 3. ZOFRAN. 4. CLEAR LIQUIDS FOR NOW. 5. F/U TG LEVEL. 6. LIBRIUM. 7. THIAMINE. 8. ALCOHOL CESSATION STRESSED.
[2018-04-24] MEDS: Multivitamin Tab PO SCH ×2 (10:06→13:06)
--- NOTE | 2018-04-24 13:58 | General Progress Note ---
Subjective - Review of Systems Service Date: 04/24/18 Subjective: awake and alert epigastric pain feeling overall better no vomiting Objective - Results Result Diagrams: 04/24/18 05:55 04/24/18 05:55 Recent Labs: Laboratory Last Values WBC 14.0 Th/cmm (4.8-10.8) H 04/24/18 05:55 RBC 4.09 Mil/cmm (4.30-5.70) L 04/24/18 05:55 Hgb 13.5 gm/dL (12-16) 04/24/18 05:55 Hct 39.5 % (41.0-60) L 04/24/18 05:55 MCV 96.5 fl (80-99) 04/24/18 05:55 MCH 33.0 pg (26.0-30.0) H 04/24/18 05:55 MCHC Differential 34.2 pg (28.0-36.0) 04/24/18 05:55 RDW 13.9 % (11.5-20.0) 04/24/18 05:55 Plt Count 174 Th/cmm (150-400) 04/24/18 05:55 MPV 9.2 fl 04/24/18 05:55 Add Manual Diff YES 04/23/18 05:48 Neutrophils % 82.9 % (40.0-80.0) H 04/24/18 05:55 Band Neutrophils % 0 % (0-10) 04/23/18 05:48 Lymphocytes % 9.4 % (20.0-50.0) L 04/24/18 05:55 Monocytes % 6.5 % (2.0-10.0) 04/24/18 05:55 Eosinophils % 1.2 % (0.0-5.0) 04/24/18 05:55 Basophils % 0.0 % (0.0-2.0) 04/24/18 05:55 Neutrophils (Manual) 95 % (40-80) H 04/23/18 05:48 Lymphocytes 5 % (20-50) L 04/23/18 05:48 Monocytes 5 % (2-10) 04/23/18 05:48 Eosinophils 0 % (0-5) 04/23/18 05:48 Basophils 0 % (0-3) 04/23/18 05:48 PT 10.3 SECONDS (9.5-11.5) 04/24/18 05:55 INR 0.99 (0.5-1.4) 04/24/18 05:55 PTT (Actin FS) 31.6 SECONDS (26.0-38.0) 04/24/18 05:55 Sodium 131 mEq/L (136-145) L 04/24/18 05:55 Potassium 3.6 mEq/L (3.5-5.1) 04/24/18 05:55 Chloride 100 mEq/L (98-107) 04/24/18 05:55 Carbon Dioxide 23.9 mEq/L (21.0-31.0) 04/24/18 05:55 Anion Gap 10.7 (7.0-16.0) 04/24/18 05:55 BUN 9 mg/dL (7-25) 04/24/18 05:55 Creatinine 0.9 mg/dL (0.7-1.3) 04/24/18 05:55 Est GFR ( Amer) > 60.0 ml/min (>90) 04/24/18 05:55 Est GFR (Non-Af Amer) > 60.0 ml/min 04/24/18 05:55 BUN/Creatinine Ratio 10.0 04/24/18 05:55 Glucose 108 mg/dL (70-105) H 04/24/18 05:55 Calcium 8.5 mg/dL (8.6-10.3) L 04/24/18 05:55 Magnesium 1.9 mg/dL (1.9-2.7) 04/23/18 05:48 Total Bilirubin 2.0 mg/dL (0.3-1.0) H 04/24/18 05:55 AST 82 U/L (13-39) H 04/24/18 05:55 ALT 51 U/L (7-52) 04/24/18 05:55 Alkaline Phosphatase 76 U/L (34-104) 04/24/18 05:55 Total Protein 5.9 gm/dL (6.0-8.3) L 04/24/18 05:55 Albumin 3.0 gm/dL (4.2-5.5) L 04/24/18 05:55 Globulin 2.9 gm/dL 04/24/18 05:55 Albumin/Globulin Ratio 1.0 (1.0-1.8) 04/24/18 05:55 Triglycerides 104 mg/dL (<150) 04/24/18 05:55 Amylase 159 U/L (29-103) H 04/23/18 05:48 Lipase 589 U/L (11-82) H 04/24/18 05:55 Urine Source MIDSTREAM 04/24/18 05:15 Urine Color YELLOW 04/24/18 05:15 Urine Clarity TURBID (CLEAR) 04/24/18 05:15 Urine pH 6.0 (4.6 - 8.0) 04/24/18 05:15 Ur Specific [place] >= 1.030 (1.005-1.030) 04/24/18 05:15 Urine Protein 30 mg/dL (NEGATIVE) H 04/24/18 05:15 Urine Glucose (UA) NEGATIVE mg/dL (NEGATIVE) 04/24/18 05:15 Urine Ketones TRACE mg/dL (NEGATIVE) 04/24/18 05:15 Urine Blood TRACE (NEGATIVE) 04/24/18 05:15 Urine Nitrate NEGATIVE (NEGATIVE) 04/24/18 05:15 Urine Bilirubin NEGATIVE (NEGATIVE) 04/24/18 05:15 Urine Urobilinogen 0.2 E.U./dL (0.2 - 1.0) 04/24/18 05:15 Ur Leukocyte Esterase NEGATIVE (NEGATIVE) 04/24/18 05:15 Urine RBC 0-2 /hpf (0-5) H 04/24/18 05:15 Urine WBC 0-2 /hpf (0-5) 04/24/18 05:15 Ur Epithelial Cells OCCASIONAL /lpf (FEW) 04/24/18 05:15 Amorphous Sediment FEW URATES (NONE SEEN) 04/24/18 05:15 Urine Bacteria 2+ /hpf (NONE SEEN) H 04/24/18 05:15 Ethyl Alcohol 123 mg/dL (0-10) H 04/22/18 03:25 - Physical Exam Vitals and I&O: Vital Signs Temp 97.8 F 04/24/18 12:00 Pulse 83 04/24/18 12:00 Resp 18 04/24/18 12:00 BP 145/77 04/24/18 12:00 Pulse Ox 97 04/24/18 12:00 Intake & Output 01/09/0404/24/18 04/24/18 18:59 06:59 18:59 Intake Total 1100 100 50 Balance 1100 100 50 Weight (lbs) 81.647 kg Intake: Intake, IV Amount 1100 100 50 Piperacillin Sodium/ 100 100 50 Tazobact 3.375 gm In Sodium Chloride 0.9% 50 ml @ 100 mls/hr IV Q6HR [facility] Rx#:[id number] Sodium Chloride 0.9% 1, 1000 000 ml @ 150 mls/hr IV . Q6H40M [facility] Rx#:[id number] Other: Stool Characteristics Liquid Weight Source Estimated Active Medications: Current Medications Chlordiazepoxide (Librium) 25 mg PO BID [facility]; Protocol Stop: 06/21/18 16:59 Last Admin: 04/24/18 10:07 Dose: 25 mg Folic Acid (Folate) 1 mg PO DAILY [facility] Stop: 06/22/18 13:29 Last Admin: 04/24/18 13:06 Dose: 1 mg Hydromorphone HCl (Dilaudid) 2 mg IVP Q4H PRN PRN Reason: Pain (Severe) Stop: 06/21/18 05:31 Last Admin: 04/24/18 10:04 Dose: 2 mg Multivitamins/Minerals 10 ml/Thiamine HCl 100 mg/ Magnesium Sulfate 2 gm/ Folic Acid 1 mg / Sodium Chloride 1,015.2 mls @ 125 mls/hr IV Q24H [facility] Stop: 06/21/18 14:59 Last Admin: 04/23/18 15:33 Dose: 125 mls/hr Piperacillin Sod/Tazobactam (Sod 3.375 gm/ Sodium Chloride) 50 mls @ 100 mls/ hr IV Q6HR [facility] Stop: 06/22/18 08:29 Last Admin: 04/24/18 12:57 Dose: 100 mls/hr Sodium Chloride (Nacl 0.9%) 1,000 mls @ 150 mls/hr IV .Q6H40M [facility] Stop: 06/22/18 07:57 Last Admin: 04/24/18 05:18 Dose: 150 mls/hr Lorazepam (Ativan) 1 mg IVP Q4HR PRN; Protocol PRN Reason: Anxiety Stop: 06/22/18 13:18 Multivitamins/Vitamin C (Theragran) 1 tab PO DAILY [facility] Stop: 06/22/18 13:29 Last Admin: 04/24/18 13:06 Dose: 1 tab Ondansetron HCl (Zofran) 4 mg IV Q4H PRN PRN Reason: Nausea / Vomiting Stop: 06/21/18 05:31 Last Admin: 04/22/18 22:40 Dose: 4 mg Pantoprazole Sodium (Protonix) 40 mg IVP BID [facility] Stop: 06/22/18 08:59 Last Admin: 04/24/18 10:06 Dose: 40 mg Thiamine HCl (Vitamin B1) 100 mg PO DAILY [facility] Stop: 06/22/18 13:14 Last Admin: 04/24/18 13:06 Dose: 100 mg General: Alert HEENT: Atraumatic Neck: Supple Cardiovascular: Regular rate Lungs: Clear to auscultation Abdomen: Bowel sounds, Soft, Tender (MILD EPIG), Distended (MILD) Assessment/Plan - Assessment Assessment: acute pancreatitis etoh abuse UTI Hyponatremia - Plan Plan: continue IV hydration liquid diet monitor electrolytes and WBC
[2018-04-25] MEDS: HYDROmorphone 2 mg/mL 1mL Vial IVP PRN ×4 (02:30→14:15)
[2018-04-25 05:07] LABS: % BASOPHILS 1.4 % (0.0-2.0); % EOSINOPHILS 2.8 % (0.0-5.0); % LYMPHOCYTES 12.4 % (20.0-50.0); % MONOCYTES 7.2 % (2.0-10.0); % NEUTROPHILS 76.2 % (40.0-80.0); BASOPHILE ABSOLUTE 0.1 Th/cumm (0-0.2); EOSINOPHILE ABSOLUTE 0.3 Th/cmm (0.1-0.4); HEMOGLOBIN 12.4 gm/dL (12-16); LYMPHOCYTE ABSOLUTE 1.3 Th/cmm (1.5-3.0); MEAN CELL VOLUME 96.1 fl (80-99); MEAN CORPUSCULAR HEMOGLOBIN 33.1 pg (26.0-30.0); MEAN CORPUSCULAR HGB CONC 34.5 pg (28.0-36.0); MEAN PLATELET VOLUME 9.3 fl; MONOCYTE ABSOLUTE 0.8 Th/cmm (0.3-1.0); PLATELET COUNT 168 Th/cmm (150-400); RED BLOOD COUNT 3.75 Mil/cmm (4.30-5.70); RED CELL DISTRIBUTION WIDTH 13.7 % (11.5-20.0); WHITE BLOOD COUNT 10.5 Th/cmm (4.8-10.8)
[2018-04-25 05:59] LABS: ALKALINE PHOSPHATASE 68 U/L (34-104); BILIRUBIN,TOTAL 1.3 mg/dL (0.3-1.0); BUN - UREA NITROGEN 6 mg/dL (7-25); CALCIUM SERUM 8.7 mg/dL (8.6-10.3); CHLORIDE 103 mEq/L (98-107); CREATININE - SERUM 0.7 mg/dL (0.7-1.3); GFR AFRICAN-AMERICAN > 60.0 ml/min (>90); GFR NON AFRICAN-AMERICAN > 60.0 ml/min; GLUCOSE 93 mg/dL (70-105); LIPASE 332 U/L (11-82); POTASSIUM SERUM 3.4 mEq/L (3.5-5.1); SGOT 53 U/L (13-39); SGPT/ALT 40 U/L (7-52); SODIUM SERUM 136 mEq/L (136-145)
[2018-04-25 06:15] LABS: ANION GAP 12.4 (7.0-16.0)
[2018-04-25] MEDS: Multivitamin Tab PO SCH (10:26)
[2018-04-25] MEDS ORDERED: Probiotic Screen MC PRN (12:14)
--- NOTE | 2018-04-25 12:39 | GI Progress Note ---
Subjective - Review of Systems Service Date: 04/25/18 Subjective: EVENTS NOTED. STILL WITH MILD PAIN AND BLOATING. GREGORY CLEARS. Objective - Results Result Diagrams: 04/25/18 04:40 04/25/18 04:40 Recent Labs: Laboratory Last Values WBC 10.5 Th/cmm (4.8-10.8) 04/25/18 04:40 RBC 3.75 Mil/cmm (4.30-5.70) L 04/25/18 04:40 Hgb 12.4 gm/dL (12-16) 04/25/18 04:40 Hct 36.0 % (41.0-60) L 04/25/18 04:40 MCV 96.1 fl (80-99) 04/25/18 04:40 MCH 33.1 pg (26.0-30.0) H 04/25/18 04:40 MCHC Differential 34.5 pg (28.0-36.0) 04/25/18 04:40 RDW 13.7 % (11.5-20.0) 04/25/18 04:40 Plt Count 168 Th/cmm (150-400) 04/25/18 04:40 MPV 9.3 fl 04/25/18 04:40 Add Manual Diff YES 04/23/18 05:48 Neutrophils % 76.2 % (40.0-80.0) 04/25/18 04:40 Band Neutrophils % 0 % (0-10) 04/23/18 05:48 Lymphocytes % 12.4 % (20.0-50.0) L 04/25/18 04:40 Monocytes % 7.2 % (2.0-10.0) 04/25/18 04:40 Eosinophils % 2.8 % (0.0-5.0) 04/25/18 04:40 Basophils % 1.4 % (0.0-2.0) 04/25/18 04:40 Neutrophils (Manual) 95 % (40-80) H 04/23/18 05:48 Lymphocytes 5 % (20-50) L 04/23/18 05:48 Monocytes 5 % (2-10) 04/23/18 05:48 Eosinophils 0 % (0-5) 04/23/18 05:48 Basophils 0 % (0-3) 04/23/18 05:48 PT 10.3 SECONDS (9.5-11.5) 04/24/18 05:55 INR 0.99 (0.5-1.4) 04/24/18 05:55 PTT (Actin FS) 31.6 SECONDS (26.0-38.0) 04/24/18 05:55 Sodium 136 mEq/L (136-145) 04/25/18 04:40 Potassium 3.4 mEq/L (3.5-5.1) L 04/25/18 04:40 Chloride 103 mEq/L (98-107) 04/25/18 04:40 Carbon Dioxide 24.0 mEq/L (21.0-31.0) 04/25/18 04:40 Anion Gap 12.4 (7.0-16.0) 04/25/18 04:40 BUN 6 mg/dL (7-25) L 04/25/18 04:40 Creatinine 0.7 mg/dL (0.7-1.3) 04/25/18 04:40 Est GFR ( Amer) > 60.0 ml/min (>90) 04/25/18 04:40 Est GFR (Non-Af Amer) > 60.0 ml/min 04/25/18 04:40 BUN/Creatinine Ratio 8.6 04/25/18 04:40 Glucose 93 mg/dL (70-105) 04/25/18 04:40 Calcium 8.7 mg/dL (8.6-10.3) 04/25/18 04:40 Magnesium 1.9 mg/dL (1.9-2.7) 04/23/18 05:48 Total Bilirubin 1.3 mg/dL (0.3-1.0) H 04/25/18 04:40 AST 53 U/L (13-39) H 04/25/18 04:40 ALT 40 U/L (7-52) 04/25/18 04:40 Alkaline Phosphatase 68 U/L (34-104) 04/25/18 04:40 Total Protein 6.0 gm/dL (6.0-8.3) 04/25/18 04:40 Albumin 3.0 gm/dL (4.2-5.5) L 04/25/18 04:40 Globulin 3.0 gm/dL 04/25/18 04:40 Albumin/Globulin Ratio 1.0 (1.0-1.8) 04/25/18 04:40 Triglycerides 104 mg/dL (<150) 04/24/18 05:55 Amylase 159 U/L (29-103) H 04/23/18 05:48 Lipase 332 U/L (11-82) H 04/25/18 04:40 Urine Source MIDSTREAM 04/24/18 05:15 Urine Color YELLOW 04/24/18 05:15 Urine Clarity TURBID (CLEAR) 04/24/18 05:15 Urine pH 6.0 (4.6 - 8.0) 04/24/18 05:15 Ur Specific [place] >= 1.030 (1.005-1.030) 04/24/18 05:15 Urine Protein 30 mg/dL (NEGATIVE) H 04/24/18 05:15 Urine Glucose (UA) NEGATIVE mg/dL (NEGATIVE) 04/24/18 05:15 Urine Ketones TRACE mg/dL (NEGATIVE) 04/24/18 05:15 Urine Blood TRACE (NEGATIVE) 04/24/18 05:15 Urine Nitrate NEGATIVE (NEGATIVE) 04/24/18 05:15 Urine Bilirubin NEGATIVE (NEGATIVE) 04/24/18 05:15 Urine Urobilinogen 0.2 E.U./dL (0.2 - 1.0) 04/24/18 05:15 Ur Leukocyte Esterase NEGATIVE (NEGATIVE) 04/24/18 05:15 Urine RBC 0-2 /hpf (0-5) H 04/24/18 05:15 Urine WBC 0-2 /hpf (0-5) 04/24/18 05:15 Ur Epithelial Cells OCCASIONAL /lpf (FEW) 04/24/18 05:15 Amorphous Sediment FEW URATES (NONE SEEN) 04/24/18 05:15 Urine Bacteria 2+ /hpf (NONE SEEN) H 04/24/18 05:15 Ethyl Alcohol 123 mg/dL (0-10) H 04/22/18 03:25 - Physical Exam Vitals and I&O: Vital Signs Temp 98.4 F 04/25/18 11:39 Pulse 91 04/25/18 11:39 Resp 18 04/25/18 11:39 BP 120/70 04/25/18 11:39 Pulse Ox 94 04/25/18 11:39 Intake & Output 04/24/18 04/25/1804/25/19 18:59 06:59 18:59 Intake Total 100 150 900 Balance 100 150 900 Weight (lbs) 81.647 kg Intake: Intake, IV Amount 100 150 Piperacillin Sodium/ 100 150 Tazobact 3.375 gm In Sodium Chloride 0.9% 50 ml @ 100 mls/hr IV Q6HR [facility] Rx#:[id number] Oral 900 Other: Stool Characteristics Liquid Weight Source Estimated Active Medications: Current Medications Chlordiazepoxide (Librium) 25 mg PO BID [facility]; Protocol Stop: 06/21/18 16:59 Last Admin: 04/25/18 10:25 Dose: 25 mg Folic Acid (Folate) 1 mg PO DAILY [facility] Stop: 06/22/18 13:29 Last Admin: 04/25/18 10:25 Dose: 1 mg Hydromorphone HCl (Dilaudid) 2 mg IVP Q4H PRN PRN Reason: Pain (Severe) Stop: 06/21/18 05:31 Last Admin: 04/25/18 10:24 Dose: 2 mg Piperacillin Sod/Tazobactam (Sod 3.375 gm/ Sodium Chloride) 50 mls @ 100 mls/ hr IV Q6HR [facility] Stop: 06/22/18 08:29 Last Infusion: 04/25/18 06:48 Dose: Infused Sodium Chloride (Nacl 0.9%) 1,000 mls @ 150 mls/hr IV .Q6H40M [facility] Stop: 06/22/18 07:57 Last Admin: 04/24/18 05:18 Dose: 150 mls/hr Lactobacillus Rhamnosus (Culturelle 15b) 1 each PO DAILY [facility] Stop: 06/24/18 13:59 Lorazepam (Ativan) 1 mg IVP Q4HR PRN; Protocol PRN Reason: Anxiety Stop: 06/22/18 13:18 Last Admin: 04/25/18 00:17 Dose: 1 mg Miscellaneous (Probiotic Screen) 1 ea MC PRN PRN PRN Reason: PROTOCOL Stop: 06/24/18 12:13 Multivitamins/Vitamin C (Theragran) 1 tab PO DAILY [facility] Stop: 06/22/18 13:29 Last Admin: 04/25/18 10:26 Dose: 1 tab Ondansetron HCl (Zofran) 4 mg IV Q4H PRN PRN Reason: Nausea / Vomiting Stop: 06/21/18 05:31 Last Admin: 04/22/18 22:40 Dose: 4 mg Pantoprazole Sodium (Protonix) 40 mg IVP BID [facility] Stop: 06/22/18 08:59 Last Admin: 04/25/18 10:24 Dose: 40 mg Thiamine HCl (Vitamin B1) 100 mg PO DAILY [facility] Stop: 06/22/18 13:14 Last Admin: 04/25/18 10:25 Dose: 100 mg General: Alert HEENT: Atraumatic Neck: Supple Cardiovascular: Regular rate Lungs: Clear to auscultation Abdomen: Bowel sounds, Soft, Tender (MILD EPIG), Distended (MILD) Assessment/Plan - Assessment Assessment: IMPRESSION: 1. ACUTE ALCOHOLIC PANCREATITIS. 2. ALCOHOL DEPENDENCE. 3. LEUKOCYTOSIS, BETTER. RECS: 1. IVF. 2. PROTONIX. 3. ZOFRAN. 4. ADVANCE DIET TO FULL LIQUIDS WITH ENSURE ENLIVE. 5. PAIN CONTROL NEEDED. 6. LIBRIUM. 7. THIAMINE. 8. ALCOHOL CESSATION STRESSED.
[2018-04-25] MEDS ORDERED: Lactobacillus Rhamnosus GG 15 Billion CFU CAP.SPRINK PO SCH (14:00)
--- NOTE | 2018-04-25 21:33 | Discharge Summary ---
DATE OF DISCHARGE: 04/25/2018 FINAL DIAGNOSES: 1. Acute pancreatitis. 2. Alcohol dependency. REVIEW OF HISTORY: The patient is a 23-year-old male with long history of alcohol dependence, presented to the Emergency Room with acute abdominal pain. By the ER physician, initial workup acute pancreatitis. VITAL SIGNS: Temperature 98.4, heart rate 114, blood pressure 152/95. CHEST: Clear to auscultation. ABDOMEN: Soft, mild tenderness. Rebound negative. LABORATORY DATA: Sodium 138, potassium 3.5, BUN 10, creatinine 0.8. White blood cell 12, hemoglobin 17.1. The patient started on IV fluid, IV thiamine, pain medication. CT of the abdomen ordered. Dr. Sumner consulted on the case. COURSE OF HOSPITALIZATION: During hospitalization, the patient improved clinically. On 04/22/2018, the patient had a CT of the abdomen and pelvis, which showed significant for acute pancreatitis on the 04/24/2018. The patient is feeling better. His food was advanced. White blood cell 14, hemoglobin 13.5. Sodium 135, potassium 3.6, BUN 9, creatinine 0.9. On 04/25/2018, as the patient is tolerating his feeding well. VITAL SIGNS: Temperature 98.7, heart rate 98, blood pressure 118/68. HEENT: Normocephalic. Pupils reacting to light and accommodation. Sclerae clear. NECK: Supple. Negative for lymphadenopathy, JVD or bruit. CHEST: Bilateral normal. No rhonchi or wheezing. HEART: S1, S2 normal. ABDOMEN: Soft and no tenderness. Sodium 136, potassium 3.4, BUN 6, creatinine 0.7, AST 53, ALT 40, lipase 332. White blood cell 10.5, hemoglobin 12.4. DISPOSITION: The patient discharged home. Follow up with primary physician as outpatient. CONDITION ON DISCHARGE: Stable. MEDICATIONS: Follow discharge reconciliation. [facility]# [id number]
== END 2018-04-25 19:49 | disposition home or self-care (01) | DRG 282 ==
LOC: ER 02:26 → MSI 04:30
PROVIDERS: ADMIT Family Medicine; ATTEND Family Medicine
DX: K85.20 Alcohol induced acute pancreatitis without necrosis or infection (principal); E87.1 Hypo-osmolality and hyponatremia; D72.829 Elevated white blood cell count, unspecified; F10.229 Alcohol dependence with intoxication, unspecified; Y90.6 Blood alcohol level of 120-199 mg/100 ml; R73.9 Hyperglycemia, unspecified; N39.0 Urinary tract infection, site not specified
CPT/HCPCS: 36415-UA; 80048-TC; 80053-TC; 80320-TC; 81001-TC; 82150-TC; 83690-TC; 83735-TC; 84478-TC; 85007-TC; 85025-TC; 85610-TC; 87086-90; 90784; 96374; 96375; 96376; C9113; J1170; J2060; J2270; J2405; J2543; J3411; J3475; J7030; Q0162; X6598; Z7610